=== PATIENT | female | born 1975 | race Caucasian/White ===

== ENCOUNTER 2023-06-26 13:59 | Emergency (ER) | payer OTHER, SELFPAY ==
[2023-06-26 14:02] VITALS: BP 172/102
--- NOTE | 2023-06-26 14:08 | ED.GENMED ---
History of Present Illness
<Gretchen Alejandro PA-C - Last Filed: 06/26/23 19:55>
General
Chief Complaint: Abdominal Symptoms
Source: patient
Exam Limitations: none
Time Seen by Provider: 06/26/23 14:06
Nursing documentation reviewed up to this point in time: agreed with
Travel History
Have you had any contact with someone who has COVID-19?: No
Do you have any symptoms of coronavirus? Fever > 100 degrees, chills, cough, shortness of breath, sore throat, loss of taste or smell, muscle aches, or headache?: No
History of Present Illness
History of Present Illness:
This is a 47-year-old female with no past medical history who is presenting to the emergency department today with lower abdominal pain for the past 5 days. She states that she feels the pain all across her lower abdomen but is worse in the left
lower quadrant. She states that when the pain first started, she had a lot of abdominal bloating and thought it was gas related pains but the pain did not relieve with flatulence. Patient states that the pain is intermittent and got so severe at
one point that she was lying on the floor unable to move. She has never had anything like this before. She states that she has a constant discomfort but has intermittent sharp pain that is disabling. She states that the pain in general has
improved over the past week. However it has not gotten better and is still very uncomfortable which concerned her. She has no associated nausea, vomiting, diarrhea, fevers or chills. She does note that she has had a decreased appetite ever since
her upper respiratory tract affection 3 weeks ago in which she lost her taste. At that time, she had high fevers and was very sick. She called her family doctor today with [facility] and saw them who recommended ER evaluation for potential
diverticulitis.
Past History
<Gretchen Alejandro PA-C - Last Filed: 06/26/23 19:55>
Past History
ED Past Medical History: Other (Thyroid nodules, palpitations)
Social History
Tobacco: Non-smoker
Alcohol: None
Family History
Family History: Other (Mother with hypertension and postmenopausal symptoms which were very similar to these)
Review of Systems
<Gretchen Alejandro PA-C - Last Filed: 06/26/23 19:55>
Review of Systems
All Other Systems: ROS reviewed and negative except as documented in HPI and ROS
Phy Exam
<Gretchen Alejandro PA-C - Last Filed: 06/26/23 19:55>
Physical Exam
Physical Exam:
Vitals: Patient is hypertensive, afebrile
General: Patient is well-appearing in no acute distress
Skin: Warm and dry, no rashes or lesions.
Cardiac: Regular rate and rhythm, no murmurs
Pulm: normal respiratory effort
Abdomen: LLQ tenderness to palpation, rebound tenderness present, no organomegaly, no abdominal distension
Course
<Gretchen Alejandro PA-C - Last Filed: 06/26/23 19:55>
Orders/Labs/Results
Orders:
Orders
06/26/23 14:41
CT Abd/Pel (IV only)-[facility] only Urgent
Comment:
Reason For Exam: LLQ pain (4 years post menopausal, no hcg indicat)
06/26/23 14:42
Ketorolac [Toradol] 15 mg IV NOW STA
06/26/23 14:47
Complete Blood Count/With Diff Urgent
Comprehensive Metabolic Panel Urgent
06/26/23 16:47
US Pelvis Transvaginal Only Urgent
Comment:
Reason For Exam: intermittent LLQ pain
Abnormal Lab Results
06/26/23
14:47
Plt Count 502 H 10^3/uL
(130-400)
ALT 38 H U/L
(0-35)
06/26/23 14:47
06/26/23 14:47
Vital Signs
Initial and Last Documented VS:
Initial Vital Signs
Temp Pulse Resp BP Pulse Ox
98.0 F 90 16 172/102 98
06/26/23 14:02 06/26/23 14:02 06/26/23 14:02 06/26/23 14:02 06/26/23 14:02
Last Documented Vital Signs
Temp Pulse Resp BP Pulse Ox
98.0 F 90 16 168/100 98
06/26/23 14:02 06/26/23 14:02 06/26/23 14:02 06/26/23 18:50 06/26/23 14:02
<Luis Duffy, DO - Last Filed: 06/26/23 14:45>
Orders/Labs/Results
Orders:
Orders
06/26/23 14:41
CT Abd/Pel (IV only)-[facility] only Urgent
Comment:
Reason For Exam: LLQ pain (4 years post menopausal, no hcg indicat)
06/26/23 14:42
Ketorolac [Toradol] 15 mg IV NOW STA
06/26/23 14:47
Complete Blood Count/With Diff Urgent
Comprehensive Metabolic Panel Urgent
06/26/23 16:47
US Pelvis Transvaginal Only Urgent
Comment:
Reason For Exam: intermittent LLQ pain
Abnormal Lab Results
06/26/23
14:47
Plt Count 502 H 10^3/uL
(130-400)
ALT 38 H U/L
(0-35)
06/26/23 14:47
06/26/23 14:47
Vital Signs
Initial and Last Documented VS:
Initial Vital Signs
Temp Pulse Resp BP Pulse Ox
98.0 F 90 16 172/102 98
02/15/24 14:02 06/26/23 14:02 06/26/23 14:02 06/26/23 14:02 06/26/23 14:02
Last Documented Vital Signs
Temp Pulse Resp BP Pulse Ox
98.0 F 90 16 168/100 98
06/26/23 14:02 06/26/23 14:02 06/26/23 14:02 06/26/23 18:50 06/26/23 14:02
<Gretchen Alejandro PA-C - Last Filed: 06/26/23 19:55>
MDM/Problems Addressed
Differential Diagnosis Includes:
ddx include diverticulitis, gastroenteritis, constipation
MDM/Problems Addressed:
abdominal pain

will obtain CT scan (patient is 4 years post menopausal, no testing indicated at this time)
Chronic conditions affecting care:
n/a
Acute Exacerbation and/or Progression of Chronic Illness:
n/a
<Gretchen Alejandro PA-C - Last Filed: 06/26/23 19:55>
*Pulse Oximetry
Patient hypoxic: no
*Critical Care Note
Total Time (30-74mins, 75-104mins- exclusive of procedures): Not Applicable
Data Reviewed
Review of Other/Old Records Reveals: Records (reviewed ER physician documentation from 06/06/16)
Prescriptions/Medications Considered But Not Given:
considered toradol however patient denying pain medication at this time
<Gretchen Alejandro PA-C - Last Filed: 06/26/23 19:55>
Patient Management
Escalation/DeEscalation of care consider admission/obs:
47 y/o female with no PMH presenting to the ER today with lower abdominal pain for the past 5 days. She states that her pain has been improving over the past few days however she will occasionally get episodes of sharp pain. Saw family doctor today
who was concerned for potential diverticulitis and sent her to emergency department for further evaluation. Her CT scan of the abdomen with IV contrast revealed a 3 cm fatty density contiguous with the sigmoid colon however might represent an
ovarian dermoid. Due to patient intermittent severe pain, I was concerned about intermittent torsion with the now possibility of an ovarian dermoid so a transvaginal ultrasound was ordered which revealed a 3 x 4 cm slightly echogenic area in the
left adnexa which is separate from the left ovary and may represent a lipoma. I educated patient on these findings and explained that her symptoms are probably not related to these findings explained that radiology recommended a follow-up on this
with elective MRI. Patient has not not had any further episodes of sharp pain while here in the emergency department. Advised patient to follow-up with her primary care provider in the coming days to ensure the resolution of her symptoms and for
further workup if necessary. Her symptoms may be a continuation of her viral illness she had a few weeks ago, or related to constipation. I advised patient to do also try MiraLAX. Patient aware of plan, patient stable for discharge.
<Gretchen Alejandro PA-C - Last Filed: 06/26/23 19:55>
Update Note
Update Note:
4:48pm-- CT reveals 3 cm fatty density area/lesion most likely contiguous with the sigmoid colon such as an ovarian dermoid, will obtain transvaginal US to rule out intermittent torsion
ED Attending Note
<Gretchen Alejandro PA-C - Last Filed: 06/26/23 19:55>
-
Portions of this chart may have been created with voice recognition software.� Occasional wrong word or��sound alike� substitutions may have occurred due to the inherent limitations of voice recognition software.
<Luis Duffy DO - Last Filed: 06/26/23 14:45>
ED Attending Note
Patient seen and examined by attending physician: Yes
I performed the substantive portion of visit, reviewed & personally made and approve the management plan that is documented in note by myself or RACHID.: Yes
I performed a history and physical exam of patient and discussed management with resident, I reviewed resident's note and agree with documented findings and plan of care.: Yes
ED Attending Note:
I evaluated the patient at bedside. The patient states that the pain started about 5 days ago and was more severe earlier in the week. Today it is improved. She describes the pain as 'like I swallowed a porcupine'. She had not been passing gas
but has been passing a very tiny amount of gas more recently. She has been having very small bowel movements. She felt bloated earlier. Currently she declines analgesia. Given the severity of her symptoms will obtain CT imaging for further
evaluation. She has had a cholecystectomy in the past.
Discharge Plan
Departure
Patient Disposition: Home (Routine Discharge)
Date of Disposition: 06/26/23
Time of Disposition: 18:34
Patient with high blood pressure during this ER visit?: Yes
Condition: Good
Discharge Problem:
Abdominal pain
Instructions: Constipation, Adult (DC), Abdominal Pain, BLOOD PRESSURE
Prescriptions:
No Action
Cinnamon
1 tab PO DAILY
Cranberry
1 tab PO DAILY
Fish Oil
1 tab PO DAILY
Holy Basil
1 tab PO DAILY
Referrals:
Jovanni Worley MD [Family Provider] -
Activity Restrictions/Additional Instructions:
I recommend taking miralax to help with your constipation.
Please call your primary care provider tomorrow to make an appointment to follow up on your symptoms.
Interventions
Interventions:
*Risk Screen - Suicide Last Done: 06/26/23 14:49
*General Assessment Last Done: 06/26/23 14:49
*Neglect/Abuse Screening Last Done: 06/26/23 14:49
ED- Fall Risk Assessment Last Done: 06/26/23 14:49
*ED COVID-19 Vaccine History Last Done: 06/26/23 14:02
*Nursing Disposition Last Done: 06/26/23 18:50
DM-Shvfob-Pyqnoivscc Assessment Last Done: 06/26/23 14:49
Discharge Date and Time
Discharge Date/Time: 06/26/23 18:53
[2023-06-26 14:49] VITALS: BMI 38.2
[2023-06-26 14:52] LABS: % Basophils 0.5 % (0-2); % Eosinophils 0.3 % (0-6); % Immature Granulocytes 0.3 % (0-0.5); % Lymphocytes 27.8 % (20.5-51.1); % Monocytes 6.5 % (1.7-9.3); % Neutrophils 64.6 % (42.2-75.2); Absolute Basophils 0.1 10^3/uL (0-0.2); Absolute Lymphocytes 2.7 10^3/uL (1.2-3.4); Absolute Monocytes 0.6 10^3/uL (0.1-0.6); Absolute Neutrophils 6.2 10^3/uL (1.4-6.5); Hematocrit 39.6 % (37.0-47.0); Hemoglobin 13.6 g/dL (12.0-16.0); Mean Corp Hgb Conc. 34.3 g/dL (33.0-37.0); Mean Corpuscular Hgb 29.4 pg (27.0-31.0); Mean Corpuscular Volume 85.7 fL (81.0-99.0); Mean Platelet Volume 8.5 fL (7.4-10.4); Nucleated Red Blood Cells % 0 %; Platelet Count 502 10^3/uL (130-400); Red Blood Cell Count 4.62 10^6/uL (4.20-5.40); Red Cell Dist. Width 12.3 % (11.5-14.5); White Blood Cell Count 9.6 10^3/uL (4.8-10.8)
[2023-06-26 15:06] LABS: ALT (SGPT) 38 U/L (0-35); AST (SGOT) 28 U/L (14-36); Albumin 4.4 g/dl (3.5-5.0); Alkaline Phosphatase 92 U/L (38-126); Blood Urea Nitrogen 12 mg/dl (7-17); Calcium 9.2 mg/dl (8.4-10.2); Carbon Dioxide 24 mmol/L (22-30); Chloride 104 mmol/L (98-107); Estimated Creatinine Clearance > 125 ml/min; Glucose 96 mg/dl (70-99); Potassium 4.2 mmol/L (3.5-5.1); Sodium 136 mmol/L (135-145); Total Bilirubin 0.7 mg/dl (0.2-1.3); Total Protein 7.6 g/dl (6.3-8.2); eGFR > 60.00
[2023-06-26 18:50] VITALS: BP 168/100
== END 2023-06-26 18:53 | disposition home or self-care (01) ==
LOC: EMR 13:59
PROVIDERS: Physician Assistant; EMERGENCY PHYSICIAN Emergency Medicine; FAMILY PHYSICIAN Family Medicine
DX: R10.30 Lower abdominal pain, unspecified (principal)
CPT/HCPCS: 99285; 74177; 76830; 80053; 85025; Q9967